=== PATIENT | female | born 1990 | race Caucasian/White ===

== ENCOUNTER 2018-02-03 06:43 | Emergency (ER) | payer SELFPAY ==
[2018-02-03] VITALS (13 sets, daily range): BP systolic 104–144; BP diastolic 66–92; PULSE 50–83; RESP 12–20; TEMP 35.9; O2SAT 98–100; BMI 26.2
--- NOTE | 2018-02-03 07:01 | EKG12_ITS ---
Test Reason : OVERDOSE Blood Pressure : / mmHG Vent. Rate : 058 BPM Atrial Rate : 058 BPM P-R Int : 140 ms QRS Dur : 100 ms QT Int : 480 ms P-R-T Axes : 034 071 052 degrees QTc Int : 471 ms Sinus bradycardia Otherwise normal ECG Confirmed by ARIELLA SHRESTHA, VON ([id number]), newspaper or periodical editor JAJA ANSARI ([id number] on 02/06/2018 8:43:26 AM Referred By: LEXI Confirmed By:VON KRISHNAN MD
--- NOTE | 2018-02-03 07:01 | CT_ITS ---
STUDY: CT BRAIN WITHOUT CONTRAST REASON FOR EXAM: Female, 27 years old. Overdose, nonresponsive RADIATION DOSAGE (If Supplied By Facility): CTDIvol = ( 44.99 ) mGy, DLP = ( 796.11 ) mGycm TECHNIQUE: Transaxial CT imaging of the brain was performed without administration of intravenous contrast material. Sagittal and coronal reconstructed images are provided and reviewed. Individualized dose optimization techniques were used for this CT. COMPARISON: None. FINDINGS: Normal soft tissue structures. Normal calvarium. Normal size ventricles and extra-axial spaces for the patient's age. Normal white matter tracts of the cerebral hemispheres. Normal basal ganglia and thalami. Normal brainstem. Normal cerebellum. There is no intracranial hemorrhage. There are no findings of an acute ischemic infarction. Normal visualized paranasal sinuses. CT/Brain/Head without Contrast IMPRESSION: Normal unenhanced CT scan of the brain. Electronically Signed: Omid Mathis DO at 8:15 EDT Tel , Service support ,
--- NOTE | 2018-02-03 07:03 | RAD_ITS ---
STUDY: X-RAY CHEST REASON FOR EXAM: Female, 27 years old. Overdose TECHNIQUE: 1 view COMPARISON: None. FINDINGS: The lungs are clear and expanded. There is no demonstrated pleural abnormality. Normal size heart. Normal mediastinum and nicole. Normal visualized pulmonary arteries. Normal visualized aortic arch and descending thoracic aorta. Normal visualized thoracic spine. Normal visualized ribs, clavicles, and shoulders. There is no demonstrated abnormality of the visualized soft tissue structures of the upper abdomen. RAD/Chest 1 View (Portable) IMPRESSION: Normal x-ray examination of the chest. No acute findings in the chest Electronically Signed: John Bowling, at 7:39 EDT Tel , Service support ,
--- NOTE | 2018-02-03 07:15 | ED.VISSUMM ---
- ER Visit Summary Date of Service: 02/03/18 Chief Complaint: Overdose History of Present Illness: The patient is a 27 F [place] Patient admitted to EMS that she used meth and Xanax. She was found in a ditch unresponsive but was arousable per EMS. She has decreased responsiveness but answers questions appropriately when aroused. Unable to obtain further history. Physical Examination: Vitals are stable. Patient is afebrile. Alert no acute distress. HEENT exam is unremarkable. Neck is nontender Lungs are clear and equal bilaterally. Heart is regular rate and rhythm. Abdomen is soft nontender nondistended. Extremities are unremarkable. Skin is warm and dry. No focal neurologic deficit. Opens eyes to voice and answers questions appropriately. Remainder of exam is unremarkable. Emergency Department Course and Treatment: CBC normal except for hemoglobin 10.1. Chemistries unremarkable. HCG negative. Alcohol negative. EKG sinus rate 58. Chest x-ray shows no acute process. CT head shows no acute process. Tox shows methamphetamine, amphetamine, benzos. On multiple re-evaluations, patient is more arousable. After further observation, patient is awake and alert. She is tolerating p.o. She will be discharged. Disposition: Discharge Impression: Substance abuse This note was generated with [employer] dictation software. It may contain incorrect words, spelling, and punctuation that were not noted in review of the chart prior to signing ED Disposition - Plan for ED Patient: Chief Complaint: Overdose Referrals: NOT,DEFINED [NON-STAFF] -
[2018-02-03 07:38] LABS: Absolute Lymphocyte Count 1.84 X10^3/ul (0.83-4.51); Absolute Neutrophil Count 4.6 X10^3/uL (2.0-7.7); Basophil# 0.04 X10^3/uL; Basophil% 0.5 % (0-1); Eosinophil# 0.24 X10^3/uL; Eosinophils% 3.2 % (0-5); Hematocrit 34.2 % (37-47); Hemoglobin 10.1 g/dl (12.0-15.0); Lymphocyte # 1.84 X10^3/ul (4.0); Lymphocyte % 24.8 % (19-41); Mean Corp Hgb Conc 29.5 g/gl (32-36); Mean Corpuscular Hgb 23.3 pg (27.0-32.0); Mean Corpuscular Volume 78.8 fL (81-99); Mean Platelet Vol. 10.2 fl (6.2-12.0); Monocyte# 0.69 X10^3/uL; Monocyte% 9.3 % (0-10); Neutrophil # 4.59 X10^3/uL (2.7-7.7); Neutrophil % 62.1 % (47-70); Platelet Count 387 K/mm3 (150-450); RBC Distribution Width CV 16.5 % (11.6-14.6); RBC Distribution Width SD 46.6 fl (35.1-43.9); Red Blood Count 4.34 M/mm3 (4.2-5.4); White Blood Count 7.4 K/mm3 (4.4-11.0)
[2018-02-03 07:42] LABS: Anion Gap 5 (5-15); BUN 5 mg/dL (7-18); BUN/Creat Ratio 5.9 RATIO (10-20); Calcium,Total 8.7 mg/dL (8.5-10.1); Chloride 104 mmol/L (98-107); Creatinine, Serum 0.85 mg/dL (0.55-1.02); EST Glomerular Filtration Rate 86 mL/min (>60); Est Glom Filt Rate - Afr Amer 105 mL/min (>60); Estimated Creatinine Clearance 87.37 ml/min; Glucose 83 mg/dL (74-106); Potassium 3.6 mmol/L (3.5-5.1); Sodium Level 139 mmol/L (136-145)
[2018-02-03 07:55] LABS: Pregnancy, Serum, hCG Quali. NEGATIVE Negative (0-9 Nonpreg)
[2018-02-03 07:59] LABS: POSITIVE COUNT NO; POSITIVE DIFFERENTIAL NO; POSITIVE MORPHOLOGY NO
[2018-02-03 08:03] LABS: Alcohol, Blood (Medical)-Serum < 3.0 mg/dL
[2018-02-03 11:20] LABS: Amphetamine Urine VISTA POSITIVE (<1000 ng/mL); Barbiturate Urine VISTA NEGATIVE (< 200 ng/mL); Benzodiazepine Urine VISTA POSITIVE (< 200 ng/mL); Cocaine Urine VISTA NEGATIVE (< 300 ng/mL); Ecstacy Urine VISTA POSITIVE (< 500 ng/mL); Methadone Urine VISTA NEGATIVE (< 300 ng/mL); PCP Urine VISTA NEGATIVE (< 25 ng/mL); THC Urine VISTA NEGATIVE (< 50 ng/mL); Vista UDS pH Range 5
--- NOTE | 2018-02-03 16:00 | ED.DEP ---
ED Disposition - Plan for ED Patient: Chief Complaint: Overdose Instructions: ED Drug Abuse General Referrals: NOT,DEFINED [NON-STAFF] -
== END 2018-02-03 16:13 ==
LOC: ED 07:19
PROVIDERS: Emergency Provider Emergency Medicine
DX: T42.4X1A Poisoning by benzodiazepines, accidental (unintentional), initial encounter (principal); T43.621A Poisoning by amphetamines, accidental (unintentional), initial encounter; R41.82 Altered mental status, unspecified; Y92.59 Other trade areas as the place of occurrence of the external cause; F15.10 Other stimulant abuse, uncomplicated; F13.10 Sedative, hypnotic or anxiolytic abuse, uncomplicated
CPT/HCPCS: 36415; 70450; 71045; 80048; 80307; 80320; 84703; 85025; 93005; 99285; G0480